=== PATIENT | female | born 1960 | race Two or more races ===

== ENCOUNTER 2016-11-24 19:22 | Emergency (ER) | payer BC ==
[~2016-11-24] VITALS: Ht 157.5 cm; Wt 72.7 kg
[2016-11-24] MEDS ORDERED: OMNIPAQUE 350 MG/ML, 100ML BOTTLE ONE (22:00)
[2016-11-24 22:13] LABS: HEMATOCRIT 39.5 % (34.6-47.8); HEMOGLOBIN 13.2 g/dL (11.7-16.4); WHITE BLOOD COUNT 11.8 x10^3/uL (3.4-10)
[2016-11-24] MEDS ORDERED: ASPIRIN 81 MG TABLET CHEW ONE (23:05)
[2016-11-24 23:09] VITALS: BP 142/68
[2016-11-24] MEDS ORDERED: CIPROFLOXACIN OPHTH SOLN 0.3%, 5ML OP SCH (23:30)
[2016-11-24] MEDS ORDERED: ASPIRIN 81 MG TABLET CHEW PO ONE (23:30)
[2016-11-24] MEDS ORDERED: ASPIRIN 325 MG TABLET PO ONE (23:30)
[2016-11-25] MEDS ORDERED: CIPROFLOXACIN OPHTH SOLN 0.3%, 5ML RIGHTEYE SCH (06:00)
== END 2016-11-24 23:18 | disposition home or self-care (01) ==
LOC: ED 23:12
DX: H34.11 Central retinal artery occlusion, right eye (principal); H54.61 Unqualified visual loss, right eye, normal vision left eye; G43.909 Migraine, unspecified, not intractable, without status migrainosus
CPT/HCPCS: 36415; 70450; 70496; 70498; 80047; 85025; 85610; 85651; 93005; 99285; Q9967